=== PATIENT | male | born 1935 | race Hispanic/Latino ===

== ENCOUNTER 2024-03-06 13:51 | Inpatient (IN) | payer MEDICARE ==
[2024-03-06] VITALS (10 sets, daily range): BP systolic 112–136; BP diastolic 61–67; PULSE 70–71; RESP 18–31; TEMP 98.7–99.4; O2SAT 98–100
[~2024-03-06] VITALS: Ht 170.2 cm; Wt 84.9 kg
[~2024-03-06 13:51] MED LIST: METHOCARBAMOL500 MG PO; NAPROXEN375 MG PO
[2024-03-06 14:37] LABS: BASOPHILS % 0.3 % (0.0-1.0); EOSINOPHILS # (AUTO) 0.1 (0.0-0.4); EOSINOPHILS % 0.4 % (0.0-6.0); HEMOGLOBIN 16.1 g/dL (14.0-18.0); LYMPHOCYTES # (AUTO) 2.4 (1.0-3.2); LYMPHOCYTES % 17.2 % (18.0-39.1); MEAN CORPUSCULAR HEMOGLOBIN 30.1 pg (28-32); MEAN CORPUSCULAR HGB CONC 32.2 g/dL (31-35); MEAN CORPUSCULAR VOLUME 93.5 fL (81-99); MONOCYTES # (AUTO) 0.3 (0.2-0.8); MONOCYTES % 1.9 % (4.4-11.3); NEUTROPHILS # (AUTO) 11.1 (2.1-6.9); NEUTROPHILS % 79.8 % (38.7-80.0); PLATELET COUNT 414 x10e3/uL (140-360); RED BLOOD COUNT 5.35 x10e6/uL (4.3-5.7); RED CELL DISTRIBUTION WIDTH 13.7 % (11.7-14.4); WHITE BLOOD COUNT 13.88 x10e3/uL (4.8-10.8)
[2024-03-06 14:44] LABS: INR 1.37; PROTHROMBIN TIME 17.6 seconds (11.9-14.5)
[2024-03-06 14:45] LABS: PARTIAL THROMBOPLASTIN TIME 29.6 seconds (23.8-35.5)
[2024-03-06 14:52] LABS: ALBUMIN/GLOBULIN RATIO 1.1 (0.8-2.0); ANION GAP 22.8 mmol/L (8-16); BILIRUBIN,TOTAL 2.6 mg/dL (0.2-1.2); CALCIUM 9.9 mg/dL (8.4-10.2); CREATININE, SERUM 1.33 mg/dL (0.72-1.25); POTASSIUM 4.8 mmol/L (3.5-5.1); TOTAL PROTEIN 7.5 g/dL (6.5-8.1)
[2024-03-06 14:58] LABS: TROPONIN I 0.01 ng/mL (0-0.300)
[2024-03-06 15:18] LABS: INFLUENZAE A&B ANTIGEN (RAPID) NEGATIVE (NEGATIVE); RESPIRATORY SYNC. VIRUS NEGATIVE (NEGATIVE)
[2024-03-06] MEDS: SODIUM CHLORIDE 0.9% 1000ML 1,000 ML IV SCH ×4 (15:28→20:55)
[2024-03-06] MEDS: ACETAMINOPHEN 1000 MG/100 ML IV STA (15:29)
[2024-03-06 16:20] LABS: CLARITY,URINE CLOUDY (CLEAR); COLOR,URINE AMBER (YELLOW); LEUKOCYTE ESTERASE ,URINE NEGATIVE (NEGATIVE); PH,URINE 5.5 (5 - 7)
[2024-03-06 16:21] LABS: BILIRUBIN,URINE 1+ (NEGATIVE); GLUCOSE, URINE 1+ (NEGATIVE); KETONES,URINE TRACE (NEGATIVE); NITRITE,URINE POSITIVE (NEGATIVE); PROTEIN,URINE DIPSTICK 2+ (NEGATIVE); URINE UROBILINOGEN 1 mg/dL (0.2 - 1)
[2024-03-06 16:44] LABS: RBC,URINE >50 /HPF (0-5)
[2024-03-06 16:45] LABS: BACTERIA,URINE MODERATE /HPF; EPITHELIAL CELLS,URINE FEW /LPF; MUCUS,URINE FEW (RARE); TRANSITIONAL EPI CELLS,URINE FEW; WBC,URINE (MAN) 0-5 /HPF (0-5)
[2024-03-06] MEDS ORDERED: SODIUM CHLORIDE 0.9% 500ML 500 ML IV ONE ×2 (17:30→18:00)
[2024-03-06] MEDS ORDERED: SODIUM CHLORIDE 0.9% IV ONE (17:30)
[2024-03-06] MEDS ORDERED: SODIUM CHLORIDE 0.9% 1000ML 1,000 ML ONE (17:44)
[2024-03-06] MEDS: SODIUM CHLORIDE 0.9% 1000ML 1,000 ML IV ONE (17:45)
[2024-03-06] MEDS: Vancomycin IV 1 GM in SODIUM CHLORIDE 0.9% 250ML 250 ML IV ONE (17:50)
[2024-03-06] MEDS: NOREPINEPHRINE 8 MG/D5W 250 ML 250 ML IV SCH (19:17)
[2024-03-06] MEDS ORDERED: MAGNESIUM/ALUMINUM/SIMETHICONE 30 ML UDC PO PRN (21:00)
[2024-03-06] MEDS ORDERED: TRAMADOL HCL 50 MG TAB PO PRN (21:00)
[2024-03-06] MEDS ORDERED: HYDRALAZINE HCL 20 MG/ML VIAL IV PRN (21:00)
[2024-03-06] MEDS: INSULIN REGULAR, HUMAN 100 UNIT/1 ML SQ SCH (21:00)
[2024-03-06] MEDS ORDERED: DEXTROSE 50% SYRINGE 50 ML IV PRN (21:00)
[2024-03-06] MEDS: SODIUM CHLORIDE 0.9% 500ML 500 ML IV ONE (22:46)
[2024-03-07] VITALS (91 sets, daily range): BP systolic 89–159; BP diastolic 45–110; PULSE 66–81; RESP 13–42; TEMP 98.2–98.8; O2SAT 71–100
[2024-03-07] MEDS: GUAIFENESIN/DEXTROMETHORPHAN LIQD 5 ML UDC PO PRN (02:54)
[2024-03-07] MEDS: ACETAMINOPHEN 325 MG TAB PO PRN (03:28)
[2024-03-07 06:53] LABS: BASOPHILS % 0.3 % (0.0-1.0); EOSINOPHILS % 0.3 % (0.0-6.0); HEMATOCRIT 35.8 % (38.2-49.6); LYMPHOCYTES # (AUTO) 0.5 (1.0-3.2); MEAN CORPUSCULAR HEMOGLOBIN 30.6 pg (28-32); MEAN CORPUSCULAR HGB CONC 33.5 g/dL (31-35); MEAN CORPUSCULAR VOLUME 91.3 fL (81-99); MONOCYTES % 7.3 % (4.4-11.3); NEUTROPHILS # (AUTO) 11.7 (2.1-6.9); NEUTROPHILS % 87.7 % (38.7-80.0); PLATELET COUNT 263 x10e3/uL (140-360); RED BLOOD COUNT 3.92 x10e6/uL (4.3-5.7); RED CELL DISTRIBUTION WIDTH 13.4 % (11.7-14.4); WHITE BLOOD COUNT 13.31 x10e3/uL (4.8-10.8)
[2024-03-07 07:21] LABS: ALBUMIN 2.6 g/dL (3.5-5.0); ALBUMIN/GLOBULIN RATIO 1.1 (0.8-2.0); ANION GAP 11.9 mmol/L (8-16); BILIRUBIN,TOTAL 2.4 mg/dL (0.2-1.2); CALCIUM 7.5 mg/dL (8.4-10.2); CREATININE, SERUM 1.01 mg/dL (0.72-1.25); POTASSIUM 3.9 mmol/L (3.5-5.1); TOTAL PROTEIN 4.9 g/dL (6.5-8.1)
[2024-03-07] MEDS: MULTIVITAMINS/MINERALS TAB PO SCH (07:41)
[2024-03-07 07:46] LABS: CREATINE KINASE 72 IU/L (30-200)
[2024-03-07 08:10] LABS: TROPONIN I < 0.05 ng/mL (0.0-0.40)
[2024-03-07] MEDS: BENZONATATE 100 MG CAP PO PRN (11:01)
[2024-03-07] MEDS ORDERED: LOSARTAN POTASS25 MG PO (11:57)
[2024-03-07] MEDS ORDERED: METOPROLOL SUCC50 MG PO (11:57)
[2024-03-07] MEDS ORDERED: OMEPRAZOLE40 MG PO (11:57)
[2024-03-07] MEDS ORDERED: ELIQUIS5 MG PO (11:57)
[2024-03-07] MEDS ORDERED: FAMOTIDINE20 MG PO (11:57)
[2024-03-07 16:14] LABS: TROPONIN I 0.018 ng/mL (0-0.300)
[2024-03-07] MEDS: ENOXAPARIN SOD INJ 40 MG/0.4 ML SYR SC SCH (16:23)
[2024-03-07] MEDS: MELATONIN 3 MG TAB PO PRN (21:15)
[2024-03-08] VITALS (36 sets, daily range): BP systolic 101–141; BP diastolic 48–92; PULSE 68–97; RESP 20–37; TEMP 97.8–98.6; O2SAT 94–100
[2024-03-08 06:05] LABS: BASOPHILS % 0.4 % (0.0-1.0); EOSINOPHILS # (AUTO) 0.2 (0.0-0.4); EOSINOPHILS % 2.3 % (0.0-6.0); HEMATOCRIT 36.8 % (38.2-49.6); HEMOGLOBIN 11.7 g/dL (14.0-18.0); LYMPHOCYTES % 12.2 % (18.0-39.1); MEAN CORPUSCULAR HEMOGLOBIN 29.8 pg (28-32); MEAN CORPUSCULAR HGB CONC 31.8 g/dL (31-35); MEAN CORPUSCULAR VOLUME 93.6 fL (81-99); MONOCYTES # (AUTO) 0.9 (0.2-0.8); MONOCYTES % 10.8 % (4.4-11.3); NEUTROPHILS # (AUTO) 6.1 (2.1-6.9); NEUTROPHILS % 73.7 % (38.7-80.0); PLATELET COUNT 203 x10e3/uL (140-360); RED BLOOD COUNT 3.93 x10e6/uL (4.3-5.7); RED CELL DISTRIBUTION WIDTH 13.6 % (11.7-14.4); WHITE BLOOD COUNT 8.31 x10e3/uL (4.8-10.8)
[2024-03-08] MEDS ORDERED: APIXABAN 5 MG TABLET PO SCH (09:00)
[2024-03-08] MEDS: APIXABAN 5 MG TABLET PO SCH (09:46)
[2024-03-08] MEDS: PANTOPRAZOLE SOD 40 MG TABEC PO SCH (09:46)
[2024-03-08] MEDS: DOCUSATE SODIUM 100 MG CAP PO PRN (09:46)
[2024-03-08] MEDS: FAMOTIDINE 20 MG TAB PO SCH (20:24)
[2024-03-09] VITALS (20 sets, daily range): BP systolic 97–153; BP diastolic 53–77; PULSE 60–89; RESP 18–27; TEMP 98–98.6; O2SAT 92–99
[2024-03-09] MEDS: ONDANSETRON HCL INJ 2MG/ML 2ML 2 MG/ML VIAL IV PRN (07:34)
[2024-03-09] MEDS: METOCLOPRAMIDE HCL 10 MG/2ML VIAL IV SCH (16:58)
[2024-03-10] VITALS (17 sets, daily range): BP systolic 93–120; BP diastolic 54–69; PULSE 69–85; RESP 16–30; TEMP 97.4–98.1; O2SAT 93–100
[2024-03-10] MEDS ORDERED: ELIQUIS5 MG PO (15:10)
[2024-03-10] MEDS ORDERED: IOPAMIDOL 370 MG/ML 100 ML INFUS..BTL INJ ONE (18:16)
[2024-03-11] VITALS (20 sets, daily range): BP systolic 103–118; BP diastolic 53–73; PULSE 10–84; RESP 14–30; TEMP 98–98.2; O2SAT 90–100
== END 2024-03-11 17:58 | disposition home or self-care (01) | DRG 871 ==
LOC: ER 14:39 → ERHOLD 17:58 → ICU 21:50
PROVIDERS: ADMIT Internal Medicine Critical Care Medicine; ATTEND Internal Medicine Critical Care Medicine
PROC: 3E033XZ Introduction of Vasopressor into Peripheral Vein, Percutaneous Approach (ICD-10-PCS; principal; 2024-03-06)
PROC: 3E0333Z Introduction of Anti-inflammatory into Peripheral Vein, Percutaneous Approach (ICD-10-PCS; 2024-03-06)
PROC: 02HV33Z Insertion of Infusion Device into Superior Vena Cava, Percutaneous Approach (ICD-10-PCS; 2024-03-07)
DX: A41.4 Sepsis due to anaerobes (principal); J18.9 Pneumonia, unspecified organism; R65.21 Severe sepsis with septic shock; E87.20 Acidosis, unspecified; N17.9 Acute kidney failure, unspecified; K57.92 Diverticulitis of intestine, part unspecified, without perforation or abscess without bleeding; I11.0 Hypertensive heart disease with heart failure; I50.32 Chronic diastolic (congestive) heart failure; N39.0 Urinary tract infection, site not specified; R06.00 Dyspnea, unspecified; I48.0 Paroxysmal atrial fibrillation; D49.519 Neoplasm of unspecified behavior of unspecified kidney; K52.9 Noninfective gastroenteritis and colitis, unspecified; E78.5 Hyperlipidemia, unspecified; E11.9 Type 2 diabetes mellitus without complications; Z11.52 Encounter for screening for COVID-19; Z90.49 Acquired absence of other specified parts of digestive tract; Z95.810 Presence of automatic (implantable) cardiac defibrillator
CPT/HCPCS: 36415; 36555; 36569; 71045; 74178; 80053; 81001; 82550; 82948; 83605; 83735; 84484; 85025; 85610; 85730; 87040; 87071; 87086; 87205; 87400; 87420; 93005; 94799; 99252; 99284; J0696; J1650; J2405; J2543; J2765; J7030; J7050; Q9967; U0002